=== PATIENT | female | born 2000 | race African-American/Black ===

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

== ENCOUNTER 2018-08-07 08:36 | Emergency (ER) | payer OTHER ==
[2018-08-07] MEDS: ONDANSETRON 4 MG ORAL DISINTEGRATING TAB (Q0162 PER 1MG) PO (09:21)
[2018-08-07 09:32] LABS: BASO % 0.6 % (0.0-1.0); EOS # 0.2 10^3/uL (0.0-0.50); EOS % 4.3 % (0.0-3.0); HEMATOCRIT 35.8 % (36.0-47.0); HEMOGLOBIN 11.9 g/dl (12.0-15.5); IMMATURE GRANULOCYTE % 0.2 % (0-3.0); LYMPH # 1.6 10^3/uL (1.5-6.5); LYMPH % 30.9 % (24.0-44.0); MEAN CORPUSCULAR HEMOGLOBIN 31.6 pg (27.0-33.0); MEAN CORPUSCULAR HGB CONC 33.2 g/dl (32.0-36.5); MEAN CORPUSCULAR VOLUME 95.2 fl (80.0-96.0); MONO # 0.4 10^3/uL (0.0-0.8); MONO % 7.5 % (0.0-5.0); NEUTROPHILS # 2.9 10^3/uL (1.8-7.7); NEUTROPHILS % 56.5 % (36.0-66.0); PLATELET COUNT, AUTOMATED 204 10^3/uL (150-450); RED BLOOD COUNT 3.76 10^6/uL (4.00-5.40); RED CELL DISTRIBUTION WIDTH 12.7 % (11.5-14.5); WHITE BLOOD COUNT 5.2 10^3/uL (4.0-10.0)
[2018-08-07 09:45] LABS: KETONE, URINE AUTO RFX NEGATIVE (NEGATIVE); MUCUS, URINE RFX SMALL (NEGATIVE); NITRITE, URINE AUTO RFX NEGATIVE (NEGATIVE); RBC, URINE AUTO RFX 28 /HPF (0-3); SPECIFIC GRAVITY UR AUTO RFX 1.003 (1.002-1.035); SQUAM EPITHELIAL CELL UR AURFX 4 /HPF (0-6)
[2018-08-07 09:46] LABS: LEUKOCYTE ESTERASE UR AUTO RFX 3+ (NEGATIVE); WBC, URINE AUTO RFX 77 /HPF (0-3)
[2018-08-07 09:58] LABS: ALBUMIN 3.7 GM/DL (3.2-5.2); ALBUMIN/GLOBULIN RATIO 1.37 (1.00-1.93); ALKALINE PHOSPHATASE 64 U/L (45-117); ALT/SGPT 16 U/L (12-78); ANION GAP 7 MEQ/L (8-16); AST/SGOT 13 U/L (7-37); BILIRUBIN,DIRECT 0.2 MG/DL (0.0-0.2); BILIRUBIN,TOTAL 0.7 MG/DL (0.2-1.0); BLOOD UREA NITROGEN 8 MG/DL (7-18); CALCIUM LEVEL 9.1 MG/DL (8.5-10.1); CARBON DIOXIDE LEVEL 27 MEQ/L (21-32); CHLORIDE LEVEL 109 MEQ/L (98-107); CONTROL LINE HCG INT CTR LINE PRESENT; CREATININE FOR GFR 0.64 MG/DL (0.55-1.30); GLUCOSE, FASTING 85 MG/DL (70-100); HCG, SERUM QUALITATIVE NEGATIVE (NEGATIVE); POTASSIUM SERUM 3.8 MEQ/L (3.5-5.1); SODIUM LEVEL 143 MEQ/L (136-145); TOTAL PROTEIN 6.4 GM/DL (6.4-8.2)
== END 2018-08-07 10:18 | disposition home or self-care (01) ==
LOC: M ED 08:36
DX: N30.00 Acute cystitis without hematuria (principal); Z72.0 Tobacco use
CPT/HCPCS: Q0162

== ENCOUNTER 2018-12-05 12:30 | Emergency (ER) | payer OTHER ==
[~2018-12-05] VITALS: Ht 165.1 cm; Wt 49.1 kg
[~2018-12-05 12:30] MED LIST: AMOX500T PO; BACT800T5 PO; CLEO300C2 PO; MAGICMW MT; ZOFR4TAB14 PO
[2018-12-05] MEDS ORDERED: NS 1,000 ML IV ONE (14:15)
[2018-12-05] MEDS ORDERED: METOCLOPRAMIDE INJ 10MG/2ML VIAL (J2765) IV ONE (14:15)
[2018-12-05] MEDS ORDERED: AMOX500C PO (15:27)
[2018-12-05] MEDS ORDERED: REGL10TA6 PO (15:27)
[2018-12-05] MEDS ORDERED: MORPHINE 4 MG/ML 1ML VIAL/SYRINGE (J2270) IV ONE (15:30)
[2018-12-05] MEDS ORDERED: AMOXICILLIN 500 MG CAP PO ONE (15:30)
[2018-12-05 16:24] VITALS: BP 99/54
== END 2018-12-05 16:35 | disposition home or self-care (01) ==
LOC: M ED 12:30
DX: O99.351 Diseases of the nervous system complicating pregnancy, first trimester (principal); R51 Headache; O99.511 Diseases of the respiratory system complicating pregnancy, first trimester; J01.90 Acute sinusitis, unspecified; O21.9 Vomiting of pregnancy, unspecified; Z87.891 Personal history of nicotine dependence; Z3A.00 Weeks of gestation of pregnancy not specified
CPT/HCPCS: 87880; 96361; 96374; 96375; 99284; J2270; J2765

== ENCOUNTER 2019-08-08 08:38 | Inpatient (IN) | payer OTHER ==
[2019-08-08] VITALS (53 sets, daily range): BP systolic 81–167; BP diastolic 43–101
[~2019-08-08] VITALS: Ht 165.1 cm; Wt 66.6 kg
[~2019-08-08 08:38] MED LIST changes: +AMOX500C PO; +REGL10TA6 PO
[2019-08-08] MEDS ORDERED: MONI1CRE2 PV (09:03)
[2019-08-08] MEDS ORDERED: LACTATED RINGER'S 1000 ML IV STA (10:23)
--- NOTE | 2019-08-08 10:50 | HPEPDOC ---
Obstetrical History & Physical General Date of Admission Aug 08, 2019 at 10:19 History of Present Illness Patient is a 18 yo G1 @39+3wks presents with concern for ROM at 0800 this AM. Report having gush of fluid and continues to have leakage. She started to have painful contractions after she ruptured. 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 BREAST: . ABDOMEN: Gravid and non-tender to touch. FETUS: Is vertex (VTX) by sterile vaginal examination (SVE), fetus is vertex (VTX) by Víctor. HEART RATE: Regular rate and rhythm. LUNGS: Clear to auscultation (CTA). 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 EFW: 3000gm by alyssa Vital Signs/I&O Vital Signs Date Time Temp Pulse Resp B/P (MAP) Pulse Ox O2 Delivery O2 Flow Rate FiO2 08/08/19 08:58 97.9 93 16 131/85 (100) Laboratory Data 24H LABS Laboratory Tests 2 08/08/19 10:24: Serology Scanned Report Hepatitis B Testing Pertinent Laboratoy Data Blood Type: O- RBC Antibody Screen: Negative HIV: Negative Hepatitis B: Negative Rapid Plasma Reagin: Nonreactive Rubella: Immune Chlamydia/Gonorrhea: Negative (treated for chlamydia in jun, repeat jul 30 neg.) Group B Streptococcus: Negative Glucose Tolerance Test: 113 Anatomy Ultrasound Placenta Location: Anterior Normal Anatomy: Yes Placenta Previa: No Assessment/Plan Assessment patient is a 18 yo G1 @ 39+3wks gestation with PROM. Discussed with patient regarding possible use of oxytocin to augment her labor if her contractions slows down. Discussed monitoring of contractions of baby and possible invasive monitoring with FSE and IUPC as needed. Risk of infection requiring antibiotics, bleeding requiring blood transfusion and associated risks such as anaphylactic reaction as well as transmission of blood borne pathogens, emerge nt for life threatening concerns, section for CPD, forceps and vacuum use and associated risk of vaginal laceration and adverse effect to baby, episiotomy as indicated explained to patient. Plan Admit and orient. 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 Diet: clears Group B Streptococcus (GBS) [negative]. Labs and intravenous (IV) per unit protocol. get urine GC/CT for h/o chlamydia Counseled on Pitocin for augmention of labor (IOL). Anticipate [normal spontaneous delivery ()]. C-S as appropriate. YOAV ROCHA DO Aug 08, 2019 10:50
[2019-08-08 11:15] LABS: HEMATOCRIT 30.5 % (36.0-47.0); HEMOGLOBIN 9.5 g/dl (12.0-15.5); MEAN CORPUSCULAR HEMOGLOBIN 28.4 pg (27.0-33.0); MEAN CORPUSCULAR HGB CONC 31.1 g/dl (32.0-36.5); PLATELET COUNT, AUTOMATED 154 10^3/uL (150-450); RED BLOOD COUNT 3.35 10^6/uL (4.00-5.40); WHITE BLOOD COUNT 7.8 10^3/uL (4.0-10.0)
[2019-08-08] MEDS ORDERED: PROMETHAZINE INJ 25 MG/ML VIAL (J2550) IV ONE (11:30)
[2019-08-08] MEDS ORDERED: NALBUPHINE HCL 10 MG/ML AMP (J2300) IM ONE (11:30)
[2019-08-08] MEDS ORDERED: NALBUPHINE HCL 10 MG/ML AMP (J2300) IV ONE (11:30)
[2019-08-08] MEDS: LR 1,000 ML IV SCH ×2 (12:06→18:46)
[2019-08-08 12:59] LABS: CHLAMYDIA DNA AMPLIFICATION NEGATIVE (NEGATIVE); GC DNA AMPLIFICATION NEGATIVE (NEGATIVE)
[2019-08-08] MEDS ORDERED: FENTANYL 2MCG/ML ROPIVACAINE 0.2% IN 0.9% NACL 100ML IVBAG As Ordered ONE (13:56)
[2019-08-08] MEDS ORDERED: LACTATED RINGER'S 1000 ML IV PRN (16:00)
[2019-08-08] MEDS ORDERED: REFRIGERATOR IV KEYS XX PRN (16:00)
[2019-08-08] MEDS ORDERED: diphenhydrAMINE INJ 50MG/ML VIAL (J1200) IV PRN (16:00)
[2019-08-08] MEDS ORDERED: EPIDURAL/PCA KEYS XX PRN (16:00)
[2019-08-08] MEDS ORDERED: EPIDURAL COMMENT XX SCH (16:00)
[2019-08-08] MEDS ORDERED: NALOXONE INJ 0.4 MG/1 ML VIAL (J2310) IV PRN (16:00)
[2019-08-08] MEDS ORDERED: ePHEDrine SULFATE 25 MG/5 ML(5MG/ML) SYRINGE IV PRN (16:00)
[2019-08-08] MEDS ORDERED: ONDANSETRON 4MG/2ML VIAL (J2405) IV PRN (16:00)
[2019-08-08] MEDS ORDERED: FENTANYL/ROPIVACAINE/NACL BAG 100 ML EPIDURAL SCH (16:00)
[2019-08-08] MEDS ORDERED: OXYTOCIN 30 UNITS IN 0.9% NaCl 500ML IV BAG (J2590) As Ordered ONE (18:25)
[2019-08-08] MEDS ORDERED: OXYTOCIN DRIP 30 UNITS in IV 1 EA IV SCH (20:25)
[2019-08-08] MEDS ORDERED: RHOGAM 300 MCG (1500 IU) INJ (J2790) IM SCH (20:30)
[2019-08-08] MEDS ORDERED: ACETAMINOPHEN 500 MG TAB PO PRN (20:30)
[2019-08-08] MEDS ORDERED: ACETAMINOPHEN TAB 650MG DOSE (2X325MG) PO PRN (20:30)
[2019-08-08] MEDS ORDERED: DOCUSATE SODIUM 100 MG CAP PO PRN (20:30)
[2019-08-08] MEDS ORDERED: MEASLES,MUMPS,RUBELLA VACCINE INJ (MMR-II) (90707) SC SCH (20:30)
[2019-08-08] MEDS ORDERED: DIBUCAINE 1% OINTMENT 30GM TOP PRN (20:30)
--- NOTE | 2019-08-08 20:44 | DNPDOC ---
[facility] Delivery Note Delivery Note DATE OF DELIVERY: 08Aug2019 PREDELIVERY DIAGNOSIS: 39+3/7 weeks' gestation and labor. POST DELIVERY DIAGNOSIS: Delivered. PROCEDURE: Spontaneous vaginal delivery CONGRESSIONAL AIDE: Dr. Yoav Marquez ANESTHESIA: epidural ESTIMATED BLOOD LOSS: 200 mL. FINDINGS: 8 pound 0 ounce, female , Score 7/9. DELIVERY SUMMARY: With good maternal effort, baby delivered OA, restituted ROT. anterior shoulder delivered followed by posterior shoulder. Body delivered with ease. baby placed on maternal abdomen. Cord clamped x 2 and cut by GmOB. Baby taken to warmer for evaluation. Baby with vigorous cries. pitocin bolus started. placenta delivered spontaneously. fundus massaged firm. inspection reveals no laceration. baby and mother bonding when I left the room. YOAV ROCHA DO Aug 08, 2019 20:44
[2019-08-08] MEDS: IBUPROFEN 800 MG TAB PO PRN (21:27)
[2019-08-08] MEDS ORDERED: NIFEdipine 10 MG CAP PO ONE (21:30)
--- NOTE | 2019-08-08 21:31 | IPNPDOC ---
Text Note Date of Service The patient was seen on 08/08/19. NOTE come to assess patient for elevated BP. patient reports cramping. report mild GREGORY. denies n/v/change in vision. vitals: 136-166/74-101. latest pressure 152/82 NAD patient with persistent elevated BP . get pre-e labs. procardia 10mg po. retake BP in 1hr. Discussed with patient concerning for possible pre- eclampsia. may need to start patient on oral or IV anti hypertensive. VS,Fishbone, I+O VS, Fishbone, I+O Laboratory Tests 08/08/19 11:05 Vital Signs Date Time Temp Pulse Resp B/P (MAP) Pulse Ox O2 Delivery O2 Flow Rate FiO2 08/08/19 21:06 81 159/81 (107) 08/08/19 21:02 18 08/08/19 18:41 99.1 YOAV ROCHA DO Aug 08, 2019 21:31
[2019-08-08 22:14] LABS: HEMATOCRIT 29.4 % (36.0-47.0); MEAN CORPUSCULAR HGB CONC 30.6 g/dl (32.0-36.5); MEAN CORPUSCULAR VOLUME 91.3 fl (80.0-96.0); PLATELET COUNT, AUTOMATED 144 10^3/uL (150-450); RED BLOOD COUNT 3.22 10^6/uL (4.00-5.40); WHITE BLOOD COUNT 11.3 10^3/uL (4.0-10.0)
[2019-08-08 22:33] LABS: ALT/SGPT 9 U/L (12-78); BILIRUBIN,TOTAL 0.7 MG/DL (0.2-1.0); CREATININE FOR GFR 0.87 MG/DL (0.55-1.30); LDH LACTATE DEHYDROGENASE 221 U/L (84-246); URIC ACID 5.9 MG/DL (2.6-6.0)
[2019-08-09 00:15] VITALS: BP 118/64
[2019-08-09 06:00] VITALS: BP 126/80
--- NOTE | 2019-08-09 08:00 | IPNPDOC ---
Progress Note Date of Service: Aug 09, 2019 Day#: 1 Progress Note SUBJECT: Patient is a 18 yo S/P ppd #1. Patient had mild-severe range BP about 1 hr . BP corrected with procardia 10mg po x 1. patient had transient hypotension about 1.5hrs after procardia given. BP has been normal since. Patient without concerns today. She has been ambulating, voiding spontaneously without issue and tolerating regular diet. patient plans on bottle feeding. Reports lochia is like a normal period. Denies GREGORY/N/V. She reports history of constipation. Having BM about once a week. She is undecided on contraceptive. OBJECTIVE: VITAL SIGNS: Within normal limits, afebrile. NAD Abdomen: Fundus firm at U-2. Soft, NTTP. LE: no edema/erythema/tenderness A/P ppd #1, doing well. no e/o worsening BP. discussed contraceptive options with patient. will decided with visit. Discussed elevated BP immediately . recommend patient gets BP check at OB clinic 2 days after discharge. continue with routine PPC. anticipated d/c home ppd #2. VS, I&O, 24H, Fishbone Vital Signs/I&O Vital Signs Date Time Temp Pulse Resp B/P (MAP) Pulse Ox O2 Delivery O2 Flow Rate FiO2 08/09/19 06:00 99.5 89 18 126/80 (95) I&O- Last 24 Hours up to 6 AM 08/09/19 06:00 Intake Total 3555 ml Output Total 1150 ml Balance 2405 ml Laboratory Data 24H LABS Laboratory Tests 2 08/08/19 10:24: Serology Scanned Report Hepatitis B Testing 08/08/19 11:05: Nucleated Red Blood Cells % (auto) 0.0, Syphilis Serology NONREACTIVE, Chlamydia trachomatis DNA ([facility]ERA) NEGATIVE, Neisseria gonorrhoeae DNA ([facility]ERA) NEGATIVE 08/08/19 22:03: Nucleated Red Blood Cells % (auto) 0.0, Uric Acid 5.9, Total Bilirubin 0.7, Aspartate Amino Transf (AST/SGOT) 15, Alanine Aminotransferase (ALT/SGPT) 9L, Lactate Dehydrogenase 221 CBC/BMP Laboratory Tests 08/08/19 11:05 08/08/19 22:03 YOAV ROCHA DO Aug 09, 2019 08:00
[2019-08-09] MEDS: PRENATAL VITAMINS CHEWABLE TABLET PO SCH (09:25)
[2019-08-09] MEDS: IBUPROFEN 800 MG TAB PO PRN ×2 (10:24→20:36)
[2019-08-09 17:58] VITALS: BP 135/70
[2019-08-10 06:00] VITALS: BP 131/82
[2019-08-10] MEDS: PRENATAL VITAMINS CHEWABLE TABLET PO SCH (09:21)
--- NOTE | 2019-08-10 09:45 | IPNPDOC ---
Progress Note Date of Service: Aug 10, 2019 Day#: 2 Progress Note PPD 2 SUBJECT: Amelia is a 18yo s/p uncomplicated at term after presenting with PROM, doing well on ppd #2. Had an elevated bp PP treated w/procardia and has been normotensive since with no further medication. She has been ambulating, voiding spontaneously without issue and tolerating regular diet. Bottle feeding. Reports lochia is like a normal period. No f/c/n/v/SOB/CP. No GREGORY/vision changes. OBJECTIVE: VITAL SIGNS: Within normal limits, afebrile. Alert and oriented times three. Abdomen: Fundus firm at U-2. Soft, NTTP. BLE: no pain with palpation of calves ASSESSMENT: Amelia is a 18yo s/p uncomplicated at term after presenting with PROM, doing well on ppd #2. Vitals within normal limits, afebrile, hemodynamically stable with no evidence of infection. PLAN: 1. Discharge to home today. 2. Tylenol and Motrin for pain. 3. Undecided on contraception, will discuss again in clinic 4. BP check in clinic on Sunday and then routine PP visit in 6 weeks in clinic. 5. Discussed return precautions at length. Dr. Claduia Mcdonnell MD VS, I&O, 24H, Fishbone Vital Signs/I&O Vital Signs Date Time Temp Pulse Resp B/P (MAP) Pulse Ox O2 Delivery O2 Flow Rate FiO2 08/10/19 06:00 98.1 72 16 131/82 (98) 99 Room Air Claudia Mcdonnell MD Aug 10, 2019 09:45
--- NOTE | 2019-08-10 09:47 | OBDS ---
[facility] Obstetrical Discharge Sum. Obstetrical Discharge Summary : 1 Term: 0 Pre-term: 0 Abortions: 0 Livin VDRL: Non-Reactive Rh: Positive Rubella: Immune Infant Sex: Female Weight: pounds (8), ounces (0), grams (3620) Anesthesia: Regional Anesthesia A/P, Post Course List any complications Admission diagnosis: gravid @ 39+3wks premature rupture of membranes Discharge diagnosis: spontaneous vaginal delivery Condition at Discharge: stable Discharge Instructions: Home Activity: as tolerated Diet: regular Medications: filled at [facility] Follow-up: At OB clinic 2 days after discharge for blood pressure check, then 2-3wks . Hospital course: Patient admitted at 39+3wks with premature ruptured of membranes. She progressed to have spontaneous vaginal delivery. Patient had elevated blood pressure immediately and was controlled with one dose of Procardia. The remainder of her course uncomplicated. Patient meets criteria for discharge on day 2. Vitals are wnl with benign exam and she is hemodynamically stable with no evidence of infection. MD JOSEFINA Huddleston LUAT N. DO Aug 08, 2019 20:49 Claudia Mcdonnell MD Aug 10, 2019 09:47
[2019-08-10] MEDS ORDERED: DIBU10OI TOP (09:49)
[2019-08-10] MEDS ORDERED: IBUP80TA PO (09:49)
== END 2019-08-10 12:45 | disposition home or self-care (01) | DRG 807 ==
LOC: M LDO 08:38 → M LDI 10:19 → M OBS 23:00
PROVIDERS: ADMIT Obstetrics & Gynecology; ATTEND Obstetrics & Gynecology
PROC: 10E0XZZ Delivery of Products of Conception, External Approach (ICD-10-PCS; principal; 2019-08-08)
DX: O42.02 Full-term premature rupture of membranes, onset of labor within 24 hours of rupture (principal); Z37.0 Single live birth; Z3A.39 39 weeks gestation of pregnancy; O16.5 Unspecified maternal hypertension, complicating the puerperium

== ENCOUNTER → 2020-05-18 | Outpatient (REF) | payer OTHER ==
[~2020-05-18] MED LIST changes: +DIBU10OI TOP; +IBUP80TA PO; +MONI1CRE2 PV
[2020-06-18 15:00] LABS: CHLAMYDIA DNA AMPLIFICATION NEGATIVE (NEGATIVE); GC DNA AMPLIFICATION NEGATIVE (NEGATIVE)
== END ==
LOC: M SFHCLUC 16:19
PROVIDERS: ATTEND Nurse Practitioner Family
DX: R30.0 Dysuria (principal)

== ENCOUNTER → 2020-06-01 | Outpatient (REF) | payer OTHER ==
[2020-06-01 21:31] LABS: CHLAMYDIA DNA AMPLIFICATION NEGATIVE (NEGATIVE); GC DNA AMPLIFICATION NEGATIVE (NEGATIVE)
== END ==
LOC: M SFHCLUC 11:30
PROVIDERS: ATTEND Physician Assistant
DX: R30.0 Dysuria (principal); N89.8 Other specified noninflammatory disorders of vagina